=== PATIENT | female | born 1990 | race Caucasian/White ===

== ENCOUNTER 2017-12-22 07:10 | Outpatient (CLI) | payer OTHER ==
--- NOTE | 2017-12-22 14:16 | Fluoroscopy Report ---
UPPER GI SERIES WITH AIR-CONTRAST History: Gastroesophageal reflux disease without esophagitis. Findings: No comparison at this facility. [employer] film of the abdomen demonstrates an unremarkable bowel gas pattern. A late band device is identified in the left upper quadrant with slightly abnormal position. The esophagus is unremarkable. There is easy passage of the contrast agents through the lap band device, however, posterior slippage of the lap band is demonstrated. The remainder of the gastric cavity and duodenum are within normal limits. No hiatal hernia or reflux was witnessed on this exam. 52 fluoroscopic images were obtained. Impression: Posterior slippage of the lap band device.
== END 2017-12-22 07:11 | disposition home or self-care (01) ==
LOC: FLUORO 07:10
PROVIDERS: ATTEND Specialist
DX: K21.9 Gastro-esophageal reflux disease without esophagitis (principal)
CPT/HCPCS: 74247